=== PATIENT | female | born 1955 | race Caucasian/White ===

== ENCOUNTER 2024-07-06 09:41 | Outpatient (CLI) | payer MEDICARE | END 2024-07-06 09:42 | disposition home or self-care (01) | LOC: CSHMAMMO 09:41 | PROVIDERS: ATTEND Obstetrics & Gynecology | DX: R92.8 Other abnormal and inconclusive findings on diagnostic imaging of breast (principal); R92.1 Mammographic calcification found on diagnostic imaging of breast | CPT/HCPCS: 77065; G0279 ==